=== PATIENT | male | born 1945 | race Caucasian/White ===

== ENCOUNTER 2016-09-23 12:23 | Day surgery (SDC) | payer MEDICARE ==
[~2016-09-23] VITALS: Ht 180.3 cm; Wt 106.6 kg
[~2016-09-23 12:23] MED LIST: 0.9% Sodium Chloride 1,000 ML IV SCH; ASA325 PO; CHOL10002 PO; FLC50T PO; METO-271 PO; OMEG500C PO; Sodium Biphos-Phos 133 mL Enema RECTAL PRN; Sodium Chloride LOK Flush 10 mL Syringe IV PRN; fentaNYL-PF 50 mCg/mL 2 mL Inj IVPUSH PRN
[2016-09-23 12:46] VITALS: BP 163/87; PULSE 82; RESP 14; O2SAT 98
[2016-09-23 13:53] VITALS: BP 93/59; PULSE 50; RESP 15; O2SAT 92
[2016-09-23 14:00] VITALS: BP 92/53; PULSE 46; RESP 16; O2SAT 96
[2016-09-23 14:12] VITALS: BP 98/60; PULSE 50; RESP 16; O2SAT 96
--- NOTE | 2016-09-23 14:22 | ENDO ---
[address] [address] ENDOSCOPY PROCEDURE PATIENT: JANEEN ARAGON : 1945 MR#: [id number] ADMIT: 09/23/2016 JOB ID: [id number] DATE OF SERVICE: 09/23/2016 PREPROCEDURE DIAGNOSIS: Personal history of cecal polyp. POSTPROCEDURE DIAGNOSES: 1. Personal history of cecal polyp. 2. Sigmoid diverticulosis. PROCEDURE: Colonoscopy with biopsies. ENDOSCOPIST: Darien Cohn MD. MEDICATIONS: 1. Versed 5 mg. 2. Fentanyl 125 mcg. INDICATIONS: The patient is a 70-year-old man who underwent his last colonoscopy in 2011. At that time he was found to have a flat carpet lesion extending between the ileocecal valve and appendiceal orifice. He underwent a long procedure involving hot snare resection and cautery ablation of the lesion. Pathology showed a tubulovillous adenoma but no in situ or invasive carcinoma. One year repeat colonoscopy was recommended, but somehow that was not communicated accurately. After discussion of risks and benefits, he agreed to proceed with colonoscopy. FINDINGS: His prior carpet lesion in the cecum was gone. I could not appreciate any adenomatous change in the cecum whatsoever. Random biopsies were taken from the cecum. There was fairly extensive sigmoid diverticulosis. DESCRIPTION OF PROCEDURE: A procedural sedation was achieved. The patient was connected to hemodynamic monitoring, pulse oximetry, capnography. After digital rectal exam, the PCF-H190DL colonoscope was passed under visualization until the appendiceal orifice and ileocecal valve were visualized and photo documented. The cecum was interrogated fairly extensively. As described above, I did not appreciate any adenomatous change in the cecum. Random biopsies were obtained from the cecum with cold forceps to rule out undetected adenomatous change. The scope was then withdrawn and carefully retroflexed in the rectum. The sigmoid colon had fairly extensive diverticulosis. No other mucosal abnormalities were identified. Retroflexion did reveal some small to moderate internal hemorrhoids. The scope was withdrawn and the procedure terminated. He tolerated the entire procedure well. RECOMMENDATIONS: If random cecum biopsies show normal colonic mucosa, then I think he can wait another five years before his next colonoscopy. High-fiber diet is recommended for diverticulosis.
--- NOTE | 2016-09-25 10:57 | PATH ---
SURGICAL PATHOLOGY Attending Physician:Ruth Post CASE STATUS: Signed Out PATIENT NAME: JANEEN ARAGON PID: [id number] : 1945 DATE COLLECTED:09/23/2016 00:00 SPECIMEN: Colon, Biopsy CLINICAL HISTORY: 1). CECUM BIOPSY FINAL DIAGNOSIS: 1.CECUM BIOPSY: FRAGMENTS OF COLON MUCOSA WITH SINGLE AREA OF CRYPT DROPOUT AND MUCOSAL SCARRING CONSISTENT WITH FOCUS OF PREVIOUS MUCOSAL INJURY. Negative for dysplasia and malignancy. Negative for significant additional architectural distortion. ICD10 code C36.500 GROSS DESCRIPTION: The specimen is received in one formalin filled container labeled with the patient's name, sublabeled "cecum" and consists of 3 portions of tissue which aggregate to 0.3 x 0.3 x 0.2 CM. The specimen is entirely submitted in one cassette. 09/24/2016 [facility] MICRO DESCRIPTION: See diagnosis. ICD-9 CODES: CPT CODES: 1: 98823 Electronically Signed Out Dylan Flores MD [facility] [address], [place] [address] Technical component performed at [facility], [address] [place] [address] [address], [place], [address]
== END 2016-09-23 23:59 | disposition home or self-care (01) ==
LOC: END 12:23
PROVIDERS: ATTEND Student in an Organized Health Care Education/Training Program
DX: Z12.11 Encounter for screening for malignant neoplasm of colon (principal); K57.30 Diverticulosis of large intestine without perforation or abscess without bleeding; Z86.010 Personal history of colon polyps; I48.0 Paroxysmal atrial fibrillation; R00.1 Bradycardia, unspecified; E66.9 Obesity, unspecified; Z68.33 Body mass index [BMI] 33.0-33.9, adult; Z79.82 Long term (current) use of aspirin; Z79.01 Long term (current) use of anticoagulants
CPT/HCPCS: 45380; 88305; 99153; G0500; J2250; J3010; J7030